=== PATIENT | female | born 1960 | race Two or more races ===

== ENCOUNTER 2024-01-08 13:01 | Emergency (ER) | payer SELFPAY ==
[~2024-01-08] VITALS: Ht 170.2 cm; Wt 67.0 kg
[2024-01-08 13:06] VITALS: TEMP 98.4; O2SAT 100
[2024-01-08] MEDS: CYCLOBENZAPRINE 10MG TABLET PO ONE (14:43)
[2024-01-08] MEDS: IBUPROFEN 600MG TABLET PO ONE (14:43)
[2024-01-08 14:46] LABS: BASOPHILS % 0.6 % (0.0-2.0); EOSINOPHILS % 0.6 % (0.0-5.0); HEMATOCRIT. 42.8 % (36.0-48.0); HEMOGLOBIN. 14.1 g/dL (12.0-16.0); LYMPHOCYTES % 14.3 % (20.0-50.0); MEAN CORPUSCULAR HEMOGLOBIN 30.5 pg (28.0-32.0); MEAN CORPUSCULAR HGB CONC 32.9 g/dL (31.0-37.0); MEAN CORPUSCULAR VOLUME 92.6 fL (81.0-99.0); MEAN PLATELET VOLUME 7.5 fl (7.4-10.4); NEUTROPHILS % 77.5 % (40.0-76.0); PLATELET 318 x1000/uL (130-400); RED BLOOD CELL COUNT 4.62 mill/uL (4.2-5.4); RED CELL DISTRIBUTION WIDTH 14.5 % (11.6-14.6); WHITE BLOOD COUNT 6.8 x1000/uL (4.5-11.0)
[2024-01-08 14:52] LABS: CHLORIDE 105 mEq/L (98-107); POTASSIUM 4.2 mEq/L (3.5-5.1); SODIUM 139 mEq/L (136-145)
[2024-01-08 14:53] LABS: CALCIUM 9.9 mg/dL (8.7-10.4); CARBON DIOXIDE 26 mEq/L (21-32)
[2024-01-08 14:58] LABS: CREATININE 0.6 mg/dL (0.6-1.0); GLUCOSE 92 mg/dL (70-105); UREA NITROGEN BLOOD 11 mg/dL (9-23)
[2024-01-08 15:01] LABS: TROPONIN I HIGH SENSITIVITY 4 ng/L (3.0-34)
[2024-01-08] MEDS ORDERED: IBUP-2029 MT (15:49)
[2024-01-08 15:57] VITALS: BP 136/78; PULSE 88; RESP 16; O2SAT 99
== END 2024-01-08 15:58 | disposition home or self-care (01) ==
LOC: ER 13:01
DX: M54.50 Low back pain, unspecified (principal); Z88.0 Allergy status to penicillin; V49.49XA Driver injured in collision with other motor vehicles in traffic accident, initial encounter; Y93.89 Activity, other specified; Y92.89 Other specified places as the place of occurrence of the external cause; Y99.8 Other external cause status
CPT/HCPCS: 36415; 71045; 80048; 84484; 85025; 93005; 99285